=== PATIENT | female | born 1980 | race Caucasian/White ===

== ENCOUNTER 2016-09-09 18:25 | Inpatient (IN) | payer OTHER ==
[~2016-09-09] VITALS: Ht 162.6 cm; Wt 54.4 kg
--- NOTE | ~2016-09-09 | PN ---
Unit #: [id number] #: [id number] Patient: TIERRA LINDA [id number] [facility] [address] [place] [address] [id number] I MR#: [id number] NAME: TIERRA LINDA. ROOM: P181 Age: 35 Sex: F Admission Date: 09/10/2016 : 1980 Attending Physician: Jairon Howell M.D. Admitting Physician: Jairon Howell M.D. Primary Care Physician: Primary Care Physician Lauryn KING PROGRESS NOTES DATE 09/14/2016 DISCUSSION Tierra continues to be somewhat isolative in her room. Her mood is mildly less anxious with a brighter range of affect. She is alert and fully oriented with no psychosis. She denies active suicidal ideation in the hospital but is not able to clearly contract for safety today. ASSESSMENT PTSD. PLAN Continue current treatment plan. Dictated by... Delonte Romo/dorota TD: 09/15/2016 23:05 JOB #: [id number] [facility] PROGRESS NOTES Page 1 of 1 X Jairon Howell MD X PROGRESS NOTE
--- NOTE | ~2016-09-09 | PN ---
Unit #: [id number] #: [id number] Patient: TIERRA LINDA [id number] [facility] [address] [place] [address] [id number] I MR#: [id number] NAME: TIERRA LINDA. ROOM: P181 Age: 35 Sex: F Admission Date: 09/10/2016 : 1980 Attending Physician: Jairon Howell M.D. Admitting Physician: Jairon Howell M.D. Primary Care Physician: Primary Care Physician Lauryn POST NOTES DATE OF SERVICE: 09/11/2016 DISCUSSION Mr. Rasmussen continues to be anxious and depressed today. She is withdrawn in her room, attends few groups and activities, reporting a social phobia that is longstanding. She is alert and fully oriented. Her memory and concentration are intact. Her thought processes are logical with no active psychosis. ASSESSMENT Post-traumatic stress disorder and major depression. PLAN Continue current medications and precautions. Dictated by... Delonte Romo/lance TD: 09/15/2016 12:25 JOB #: [id number] [facility] PROGRESS NOTES Page 1 of 1 X Jairon Howell MD PROGRESS NOTE
--- NOTE | ~2016-09-09 | PN ---
Unit #: [id number] #: [id number] Patient: TIERRA LINDA [id number] [facility] [address] [place] [address] [id number] I MR#: [id number] NAME: TIERRA LINDA. ROOM: P181 Age: 35 Sex: F Admission Date: 09/10/2016 : 1980 Attending Physician: Jairon Howell M.D. Admitting Physician: Jairon Howell M.D. Primary Care Physician: Primary Care Physician Lauryn KING PROGRESS NOTES DATE 09/12/2016 DISCUSSION Tierra continues to complain of nightmares and anxiety. Her mood is depressed and anxious with a congruent affect. she is alert and fully oriented with no psychosis. She does continue to report suicidal ideation. ASSESSMENT Posttraumatic stress disorder, major depression. PLAN We will start Minipress 2 mg at bedtime for nightmares and Vistaril 50 mg every six hours as needed for anxiety. Dictated by... Delonte Romo/mario TD: 09/16/2016 09:44 JOB #: [id number] [facility] PROGRESS NOTES Page 1 of 1 X Jairon Howell MD PROGRESS NOTE
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
--- NOTE | ~2016-09-09 | HP ---
Unit #: [id number] #: [id number] Patient: TIERRA LINDA [id number] [place] [address] [id number] I MR#: [id number] NAME: TIERRA LINDA. ROOM: [facility] Age: 35 Sex: F Admission Date: 09/10/2016 : 1980 Attending Physician: Jairon Howell M.D. Admitting Physician: Jairon Howell M.D. Primary Care Physician: Primary Care Physician No HISTORY AND PHYSICAL HISTORY OF PRESENT ILLNESS Tierra is a 35-year-old female admitted on 09/10/2016 to [facility] for suicidal ideation and history of polysubstance abuse. PAST MEDICAL HISTORY None. PAST SURGICAL HISTORY None. SOCIAL HISTORY She smokes a pack of cigarettes daily, occasional binge alcohol use and she does report a history of polysubstance abuse. She is currently single and homeless. FAMILY HISTORY Noncontributory. REVIEW OF SYSTEMS CONSTITUTIONAL: No fever or chills. HEENT: Denies any sore throat, ear pain or runny nose. CARDIOVASCULAR: Denies chest pain, irregular heart rhythm or palpitations. CHEST: Denies shortness of breath or cough. No hemoptysis. GASTROINTESTINAL: Denies nausea, vomiting, diarrhea or chronic constipation. ENDOCRINE: Denies history of increased thirst or urination. No recent significant weight loss or gain. GENITOURINARY: Denies dysuria, frequency, or hematuria. SKIN: Denies any rashes. HEMATOLOGIC: Denies history of increased bleeding or bruising. MUSCULOSKELETAL: Denies any hot, swollen joints. No generalized muscle pain. NEUROLOGIC: Denies problems with vision or speech. No frequent, severe headaches. No numbness, tingling or weakness in any extremities. Denies loss of bladder or bowel control. CURRENT MEDICATIONS None. ALLERGIES None. Unit #: [id number] #: [id number] Patient: TIERRA LINDA PHYSICAL EXAMINATION GENERAL: Alert, oriented, in no acute distress. VITAL SIGNS: Blood pressure 95/64, heart rate 83, temperature 97.7. HEIGHT: 5 foot 4 inches. WEIGHT: 120 pounds. SKIN: Warm and dry without rash or lesion. HEENT: Normocephalic. TMs not viewed. Oral and nasal passages clear. Conjunctivae clear. PERRLA. EOMs intact. NECK: Supple without lymphadenopathy or thyromegaly. HEART: Regular rate and rhythm without murmur. LUNGS: Clear. ABDOMEN: Soft, nontender, without masses or hepatosplenomegaly. : Not done. EXTREMITIES: No evidence of cyanosis, clubbing or edema. Moves all without focal deficit. NEUROLOGICAL: Grossly within normal limits. Cranial Nerves: II: Visual bruno are intact. III, IV AND : Extraocular movements are intact. Pupils are equal, round and reactive to light. V: Facial sensation is grossly normal. VII: Facial movements and expression are normal. VIII: Auditory acuity grossly intact. IX, X: Uvula is midline. Phonation is normal. XI: Patient shrugs shoulders and turns head normally. XII: Tongue protrudes in the midline. Sensory and Motor Function: Sensory and motor sensation is grossly normal. Motor: moves all extremities well. Coordination: Gait is normal. Deep Tendon Reflexes: Intact. IMPRESSION Psychiatric admission. RECOMMENDATIONS Psychiatric, per psychiatrist. MEDICAL: I see no contraindications to participating in facility's activities. MEDICAL PROGNOSIS Good. MEDICAL CONDITION Stable. Dictated by... Angela Mathis/dorota TD: 09/11/2016 01:31 JOB #: [id number] Unit #: [id number] #: [id number] Patient: TIERRA LINDA HISTORY AND PHYSICAL Page 1 of 1 X SILVIA ROMAN APRN HISTORY AND PHYSICAL
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
== END 2016-09-15 15:50 | DRG 882 ==
LOC: P1E 09-10 03:55
DX: F43.12 Post-traumatic stress disorder, chronic (principal); F32.9 Major depressive disorder, single episode, unspecified